=== PATIENT | female | born 1995 | race African-American/Black ===

== ENCOUNTER 2018-02-26 10:38 | Emergency (ER) | payer OTHER, MEDICAID ==
[~2018-02-26] VITALS: Ht 167.6 cm; Wt 108.9 kg
[~2018-02-26 10:38] MED LIST: BACTRIM DS TAB1 EACH PO; DICLEGIS DR 101 EACH PO; HYDROCODONE-AP1 EAC6 PO; HYDROXYZINE HCL25 M1 PO; MEDROLDOSEPACK PO; ONDANSETRON HCL4 M2 PO; TRINATE TABLET1 TAB PO
[2018-02-26] MEDS ORDERED: ZPAK PO (11:03)
[2018-02-26] MEDS ORDERED: ACETAMINOPHEN-1 EAC1 PO (11:03)
[2018-02-26 11:08] VITALS: BP 140/90
== END 2018-02-26 11:10 | disposition home or self-care (01) ==
LOC: M.ERS 10:38
DX: J02.9 Acute pharyngitis, unspecified (principal)

== ENCOUNTER 2018-11-03 20:14 | Emergency (ER) | payer OTHER ==
[~2018-11-03] VITALS: Ht 167.6 cm; Wt 76.2 kg
[~2018-11-03 20:14] MED LIST changes: +ACETAMINOPHEN-1 EAC1 PO; +ZPAK PO
[2018-11-03] MEDS ORDERED: LIDOCAINE VISC100 ML PO (21:19)
[2018-11-03 21:33] VITALS: BP 120/88
== END 2018-11-03 21:34 | disposition home or self-care (01) ==
LOC: M.ERS 20:14
DX: T18.9XXA Foreign body of alimentary tract, part unspecified, initial encounter (principal); X58.XXXA Exposure to other specified factors, initial encounter; Y93.89 Activity, other specified; Y92.89 Other specified places as the place of occurrence of the external cause; Y99.8 Other external cause status